=== PATIENT | male | born 1960 | race Caucasian/White ===

== ENCOUNTER 2023-06-25 11:35 | Inpatient (IN) | payer MEDICARE, OTHER ==
[~2023-06-25 11:35] MED LIST: Iopamidol-370 76% 500 ML MDV (1 ML CHARGE) ONE
[2023-06-25] MEDS ORDERED: Ketorolac Tromethamine 30 MG (1 mL) VIAL ONE (12:46)
[2023-06-25] MEDS ORDERED: Ondansetron PF 4 MG/2 ML Vial ONE (12:46)
[2023-06-25 12:55] LABS: #Basophils 0.1 thou/uL (0.0-0.2); #Eosinphils 0.4 thou/uL (0.0-0.7); #Monocytes 0.6 thou/uL (0.11-0.59); #Neutrophils 5.5 thou/uL (1.40-6.50); %Basophils 0.7 % (0.0-1.0); %Eosinophils 4.6 % (0.0-10.0); %Lymphocytes 22.4 % (21.0-51.0); %Monocytes 6.5 % (0.0-10.0); %Neutrophils 65.2 % (42.0-75.0); Hematocrit 39.6 % (42.0-52.0); Hemoglobin 13.1 g/dL (14.0-18.0); Mean Corpuscular HGB CONC 33.1 g/dL (32.0-36.0); Mean Corpuscular Hemoglobin 30.9 pg (27.0-31.0); Mean Corpuscular Volume 93.4 fl (78.0-98.0); Platelet Count 224 10x3/uL (130-400); RBC Distribution Width 18.5 % (11.5-14.5); Red Blood Cell (RBC) Count 4.24 mill/uL (4.70-6.10); White Blood Cell (WBC) Count 8.5 10x3/uL (4.8-10.8)
[2023-06-25 13:16] LABS: Troponin I Less than 0.010 ng/mL (< 0.028)
[2023-06-25 13:19] LABS: ALT (SGPT) 330 U/L (8-55); AST (SGOT) 247 U/L (5-34); Albumin 3.9 g/dL (3.4-4.8); Alkaline Phosphatase 982 U/L (40-110); Anion Gap 12 mmol/L (10-20); BUN (Urea Nitrogen) 15 mg/dL (8.4-25.7); Bilirubin, Total 8.2 mg/dL (0.2-1.2); Calc. Creatinine Clearance 0 mL/min (70-130); Calcium 9.4 mg/dL (7.8-10.44); Carbon Dioxide 22 mmol/L (23-31); Chloride 105 mmol/L (98-107); Estimated GFR 58; Globulin 3.8 g/dL (2.4-3.5); Glucose 86 mg/dL (80-115); Lipase 43 U/L (8-78); Magnesium 2.2 mg/dL (1.6-2.6); Potassium 3.7 mmol/L (3.5-5.1); Protein, Total 7.7 g/dL (5.8-8.1); Sodium 135 mmol/L (136-145)
[2023-06-25 15:41] LABS: Amphetamine Not Detected (NotDetected); Barbiturates Screen Not Detected (NotDetected); Benzodiazepine Screen Not Detected (NotDetected); Cocaine Metabolite Screen Not Detected (NotDetected); Methadone Not Detected (NotDetected); Methamphetamine Not Detected (NotDetected); Opiate Screen Not Detected (NotDetected); Oxycodone Screen Not Detected (NotDetected); Phencyclidine (PCP) Not Detected (NotDetected); THC/Cannabinoid Screen Not Detected (NotDetected); Tricyclic Screen Not Detected (NotDetected)
[2023-06-25 15:42] LABS: Bacteria/HPF None Seen HPF (None Seen); Bilirubin 2+ (Negative); Blood, Urine Negative (Negative); CAUTI Indications for Culture Pelvic or flank pain; Clarity Clear (Clear); Glucose, Urine (Dipstick) Normal (Negative); Ketone, Urine Negative (Negative); Leukocyte Negative Leu/uL (Negative); Nitrite Negative (Negative); Protein, Urine (Dipstick) 30 mg/dL (Neg-Trace); Squamous Epithelial 0-3 HPF (0-3); Urobilinogen Greater than 12 mg/dL (Less than 2); WBC/HPF 0-3 HPF (0-3); pH, Urine 6.5 (5.0-9.0)
[2023-06-25 15:48] LABS: Specific Gravity, Urine Greater than 1.060 (1.002-1.036); Sperm/HPF 4+ HPF (None Seen)
[2023-06-25] MEDS ORDERED: Acetaminophen 325 MG TAB PO PRN (15:48)
[2023-06-25] MEDS ORDERED: Ondansetron PF 4 MG/2 ML Vial IVP PRN (15:48)
[2023-06-25] MEDS ORDERED: Lactulose 20 GM (30 mL) UDCUP PO PRN (15:48)
[2023-06-25 15:49] LABS: Urine Culture Reflex No No
[2023-06-25] MEDS ORDERED: Morphine 4 MG/ML VIAL SLOW IVP PRN (15:50)
[2023-06-25] MEDS ORDERED: Polyethylene Glycol 3350 17 GM Packet PO SCH (16:00)
[2023-06-25] MEDS ORDERED: Levothyroxine Sodium 75 MCG TAB PO SCH (16:00)
[2023-06-25] MEDS: HYDROcodone/Acetaminophen 5/325 mg Tablet PO PRN (17:31)
[2023-06-25] MEDS: Nicotine 21 MG PATCH TD SCH (17:32)
[2023-06-25 17:57] VITALS: BMI 33.2
[2023-06-25] MEDS: Morphine 2 MG/ML VIAL SLOW IVP PRN (20:01)
[2023-06-25] MEDS: Senokot S 8.6-50 MG TAB PO SCH (20:02)
[2023-06-26] MEDS: Morphine 2 MG/ML VIAL SLOW IVP PRN ×3 (05:28→20:07)
[2023-06-26] MEDS: Levothyroxine Sodium 75 MCG TAB PO SCH (05:28)
[2023-06-26 05:57] LABS: ALT (SGPT) 291 U/L (8-55); AST (SGOT) 220 U/L (5-34); Albumin 3.5 g/dL (3.4-4.8); Alkaline Phosphatase 889 U/L (40-110); Anion Gap 12 mmol/L (10-20); BUN (Urea Nitrogen) 17 mg/dL (8.4-25.7); Calc. Creatinine Clearance 70 mL/min (70-130); Calcium 8.8 mg/dL (7.8-10.44); Carbon Dioxide 21 mmol/L (23-31); Chloride 105 mmol/L (98-107); Estimated GFR 50; Globulin 3.3 g/dL (2.4-3.5); Glucose 86 mg/dL (80-115); Potassium 4.1 mmol/L (3.5-5.1); Protein, Total 6.8 g/dL (5.8-8.1); Sodium 134 mmol/L (136-145)
[2023-06-26 06:36] LABS: Thyroid Stimulating Hormone 49.1942 uIU/mL (0.35-4.94)
[2023-06-26 07:08] LABS: Free T4 (Free Thyroxine) Less than 0.40 ng/dL (0.70-1.48)
[2023-06-26] MEDS: Senokot S 8.6-50 MG TAB PO SCH ×2 (08:46→20:07)
[2023-06-26] MEDS: Polyethylene Glycol 3350 17 GM Packet PO SCH (08:46)
[2023-06-26] MEDS: HYDROcodone/Acetaminophen 5/325 mg Tablet PO PRN (08:46)
[2023-06-26] MEDS ORDERED: traMADol HCl 50 MG TAB PO PRN (14:53)
[2023-06-26] MEDS ORDERED: Acetaminophen 325 MG TAB PO PRN (14:57)
[2023-06-26] MEDS: Lactated Ringer's 1,000 ML IV SCH (16:57)
[2023-06-26] MEDS: Nicotine 21 MG PATCH TD SCH (16:58)
[2023-06-26] MEDS: Sertraline 25 MG TAB PO SCH (20:07)
[2023-06-27] MEDS: Morphine 2 MG/ML VIAL SLOW IVP PRN ×3 (01:20→13:09)
[2023-06-27] MEDS: Lactated Ringer's 1,000 ML IV SCH (04:36)
[2023-06-27] MEDS: Levothyroxine Sodium 75 MCG TAB PO SCH ×2 (04:44→08:26)
[2023-06-27 05:14] LABS: #Eosinphils 0.3 thou/uL (0.0-0.7); #Monocytes 0.5 thou/uL (0.11-0.59); #Neutrophils 4.1 thou/uL (1.40-6.50); %Basophils 0.6 % (0.0-1.0); %Eosinophils 4.8 % (0.0-10.0); %Lymphocytes 25.3 % (21.0-51.0); %Monocytes 6.8 % (0.0-10.0); %Neutrophils 61.9 % (42.0-75.0); Hematocrit 32.8 % (42.0-52.0); Hemoglobin 10.9 g/dL (14.0-18.0); Mean Corpuscular HGB CONC 33.2 g/dL (32.0-36.0); Mean Corpuscular Hemoglobin 31.4 pg (27.0-31.0); Mean Corpuscular Volume 94.5 fl (78.0-98.0); Mean Platelet Volume 10.2 fL (7.4-10.4); Platelet Count 184 10x3/uL (130-400); RBC Distribution Width 18.9 % (11.5-14.5); Red Blood Cell (RBC) Count 3.47 mill/uL (4.70-6.10); White Blood Cell (WBC) Count 6.6 10x3/uL (4.8-10.8)
[2023-06-27 05:24] LABS: INR-International Normal Ratio 0.9; Prothrombin Time 12.5 sec (12.0-14.7)
[2023-06-27 05:42] LABS: ALT (SGPT) 250 U/L (8-55); AST (SGOT) 165 U/L (5-34); Albumin 3.3 g/dL (3.4-4.8); Alkaline Phosphatase 791 U/L (40-110); Anion Gap 13 mmol/L (10-20); BUN (Urea Nitrogen) 16 mg/dL (8.4-25.7); Bilirubin, Total 5.4 mg/dL (0.2-1.2); Calc. Creatinine Clearance 98 mL/min (70-130); Calcium 8.8 mg/dL (7.8-10.44); Carbon Dioxide 22 mmol/L (23-31); Chloride 103 mmol/L (98-107); Estimated GFR 75; Globulin 3.1 g/dL (2.4-3.5); Glucose 90 mg/dL (80-115); Protein, Total 6.4 g/dL (5.8-8.1); Sodium 134 mmol/L (136-145)
[2023-06-27 05:59] LABS: HBCM Index 0.07 S/CO (0-0.79); HBSAg Index 0.18 S/CO (0-0.99); Hep A IgM AB Non-Reactive S/CO (NonReactive); Hep A IgM S/CO 0.47 S/CO (0-0.79); Hep B Surf Ag Non-Reactive S/CO (NonReactive); Hepatitis B Core IgM Abs Non-Reactive S/CO (NonReactive)
[2023-06-27 06:03] LABS: Hep C IgG Ab Reflex HepC Qnt S/CO (NonReactive)
[2023-06-27] MEDS: Senokot S 8.6-50 MG TAB PO SCH ×2 (13:19→20:28)
[2023-06-27] MEDS: Polyethylene Glycol 3350 17 GM Packet PO SCH (13:19)
[2023-06-27] MEDS ORDERED: Morphine IR 10 MG/5 ML UDCUP PO PRN (17:32)
[2023-06-27] MEDS ORDERED: Simethicone Chewable 80 MG TAB PO PRN (17:35)
[2023-06-27] MEDS ORDERED: Lactulose 20 GM (30 mL) UDCUP PO SCH ×2 (17:45→21:00)
[2023-06-27] MEDS ORDERED: Fleet Saline Enema 133 ML BOT PR SCH (17:45)
[2023-06-27] MEDS: Nicotine 21 MG PATCH TD SCH (18:19)
[2023-06-27] MEDS: Ibuprofen 200 MG TAB PO PRN (18:26)
[2023-06-27] MEDS: Acetaminophen 500 MG TAB PO PRN (20:27)
[2023-06-27] MEDS: Sertraline 25 MG TAB PO SCH (20:28)
[2023-06-27] MEDS: Lactulose 20 GM (30 mL) UDCUP PO SCH (21:06)
[2023-06-28] MEDS: Ibuprofen 200 MG TAB PO PRN ×3 (01:00→19:54)
[2023-06-28] MEDS: Acetaminophen 500 MG TAB PO PRN ×2 (05:51→16:00)
[2023-06-28] MEDS: Levothyroxine Sodium 75 MCG TAB PO SCH (05:51)
[2023-06-28 06:43] LABS: #Eosinphils 0.3 thou/uL (0.0-0.7); #Monocytes 0.4 thou/uL (0.11-0.59); %Basophils 0.5 % (0.0-1.0); %Eosinophils 4.6 % (0.0-10.0); %Lymphocytes 24.8 % (21.0-51.0); %Monocytes 6.8 % (0.0-10.0); %Neutrophils 62.7 % (42.0-75.0); Hematocrit 33.3 % (42.0-52.0); Mean Corpuscular Hemoglobin 31.3 pg (27.0-31.0); Mean Corpuscular Volume 94.6 fl (78.0-98.0); Mean Platelet Volume 11.4 fL (7.4-10.4); Platelet Count 198 10x3/uL (130-400); RBC Distribution Width 18.9 % (11.5-14.5); Red Blood Cell (RBC) Count 3.52 mill/uL (4.70-6.10); White Blood Cell (WBC) Count 6.3 10x3/uL (4.8-10.8)
[2023-06-28 07:10] LABS: ALT (SGPT) 237 U/L (8-55); AST (SGOT) 172 U/L (5-34); Albumin 3.5 g/dL (3.4-4.8); Alkaline Phosphatase 856 U/L (40-110); Anion Gap 13 mmol/L (10-20); BUN (Urea Nitrogen) 13 mg/dL (8.4-25.7); Bilirubin, Total 5.6 mg/dL (0.2-1.2); Calc. Creatinine Clearance 93 mL/min (70-130); Calcium 9.1 mg/dL (7.8-10.44); Carbon Dioxide 22 mmol/L (23-31); Chloride 101 mmol/L (98-107); Estimated GFR 70; Globulin 3.3 g/dL (2.4-3.5); Glucose 86 mg/dL (80-115); Potassium 4.3 mmol/L (3.5-5.1); Protein, Total 6.8 g/dL (5.8-8.1); Sodium 132 mmol/L (136-145)
[2023-06-28 07:42] LABS: INR-International Normal Ratio 0.9; PTT 29.9 sec (22.9-36.1); Prothrombin Time 12.1 sec (12.0-14.7)
[2023-06-28] MEDS: Senokot S 8.6-50 MG TAB PO SCH ×2 (08:51→19:55)
[2023-06-28] MEDS: Aspirin 81 mg Enteric Coated Tablet PO SCH (08:51)
[2023-06-28] MEDS: Polyethylene Glycol 3350 17 GM Packet PO SCH (08:51)
[2023-06-28] MEDS: Lactulose 20 GM (30 mL) UDCUP PO SCH ×3 (08:51→19:54)
[2023-06-28] MEDS: Nicotine 21 MG PATCH TD SCH (15:53)
[2023-06-28] MEDS: Sertraline 25 MG TAB PO SCH (19:55)
[2023-06-29] MEDS: Levothyroxine Sodium 75 MCG TAB PO SCH (05:19)
[2023-06-29] MEDS: Acetaminophen 500 MG TAB PO PRN (05:19)
[2023-06-29 06:32] LABS: #Basophils 0.1 thou/uL (0.0-0.2); #Eosinphils 0.3 thou/uL (0.0-0.7); #Monocytes 0.4 thou/uL (0.11-0.59); %Basophils 0.7 % (0.0-1.0); %Eosinophils 4.2 % (0.0-10.0); %Lymphocytes 28.8 % (21.0-51.0); %Monocytes 6.4 % (0.0-10.0); %Neutrophils 59.3 % (42.0-75.0); Hematocrit 32.8 % (42.0-52.0); Mean Corpuscular HGB CONC 33.5 g/dL (32.0-36.0); Mean Corpuscular Hemoglobin 31.9 pg (27.0-31.0); Mean Corpuscular Volume 95.1 fl (78.0-98.0); Mean Platelet Volume 11.1 fL (7.4-10.4); Platelet Count 207 10x3/uL (130-400); Red Blood Cell (RBC) Count 3.45 mill/uL (4.70-6.10); White Blood Cell (WBC) Count 6.7 10x3/uL (4.8-10.8)
[2023-06-29 06:43] LABS: INR-International Normal Ratio 0.9; PTT 29.6 sec (22.9-36.1); Prothrombin Time 12.1 sec (12.0-14.7)
[2023-06-29 06:59] LABS: ALT (SGPT) 214 U/L (8-55); AST (SGOT) 139 U/L (5-34); Albumin 3.6 g/dL (3.4-4.8); Alkaline Phosphatase 900 U/L (40-110); Anion Gap 14 mmol/L (10-20); BUN (Urea Nitrogen) 16 mg/dL (8.4-25.7); Bilirubin, Total 4.3 mg/dL (0.2-1.2); Calc. Creatinine Clearance 76 mL/min (70-130); Calcium 9.3 mg/dL (7.8-10.44); Carbon Dioxide 22 mmol/L (23-31); Chloride 101 mmol/L (98-107); Estimated GFR 55; Globulin 3.5 g/dL (2.4-3.5); Glucose 89 mg/dL (80-115); Potassium 4.1 mmol/L (3.5-5.1); Protein, Total 7.1 g/dL (5.8-8.1); Sodium 133 mmol/L (136-145)
[2023-06-29] MEDS ORDERED: Levothyroxine Sodium 75 MCG TAB PO SCH (08:09)
[2023-06-29] MEDS ORDERED: Levothyroxine Sodium 100 MCG TAB PO SCH (08:15)
[2023-06-29] MEDS: Lactulose 20 GM (30 mL) UDCUP PO SCH ×2 (08:20→20:55)
[2023-06-29] MEDS: Aspirin 81 mg Enteric Coated Tablet PO SCH (08:20)
[2023-06-29] MEDS: Polyethylene Glycol 3350 17 GM Packet PO SCH (08:21)
[2023-06-29] MEDS: Senokot S 8.6-50 MG TAB PO SCH ×2 (08:21→20:56)
[2023-06-29] MEDS ORDERED: Levothyroxine Sodium 50 MCG TAB PO SCH (08:30)
[2023-06-29] MEDS: traMADol HCl 50 MG TAB PO PRN (08:30)
[2023-06-29] MEDS: Sodium Chloride 0.9% 1,000 ML IV SCH ×2 (08:31→20:56)
[2023-06-29] MEDS: HYDROcodone/Acetaminophen 5/325 mg Tablet PO PRN ×3 (13:04→21:57)
[2023-06-29] MEDS: Nicotine 21 MG PATCH TD SCH (17:06)
[2023-06-29 19:12] LABS: Hep C PCR-Quant HCV Not Detected IU/mL (.)
[2023-06-29] MEDS: Sertraline 25 MG TAB PO SCH (20:55)
[2023-06-30] MEDS: HYDROcodone/Acetaminophen 5/325 mg Tablet PO PRN ×5 (02:47→20:06)
[2023-06-30] MEDS ORDERED: Levothyroxine Sodium 125 MCG TAB PO SCH ×2 (06:00→08:24)
[2023-06-30 06:26] LABS: #Basophils 0.1 thou/uL (0.0-0.2); #Eosinphils 0.4 thou/uL (0.0-0.7); #Monocytes 0.5 thou/uL (0.11-0.59); #Neutrophils 4.5 thou/uL (1.40-6.50); %Basophils 0.9 % (0.0-1.0); %Eosinophils 5.1 % (0.0-10.0); %Lymphocytes 21.7 % (21.0-51.0); %Monocytes 7.3 % (0.0-10.0); %Neutrophils 64.4 % (42.0-75.0); Hematocrit 33.6 % (42.0-52.0); Mean Corpuscular HGB CONC 32.7 g/dL (32.0-36.0); Mean Corpuscular Hemoglobin 31.2 pg (27.0-31.0); Mean Corpuscular Volume 95.2 fl (78.0-98.0); Platelet Count 207 10x3/uL (130-400); RBC Distribution Width 18.9 % (11.5-14.5); Red Blood Cell (RBC) Count 3.53 mill/uL (4.70-6.10)
[2023-06-30 06:38] LABS: INR-International Normal Ratio 0.9; PTT 28.8 sec (22.9-36.1); Prothrombin Time 12.2 sec (12.0-14.7)
[2023-06-30 07:00] LABS: ALT (SGPT) 228 U/L (8-55); AST (SGOT) 199 U/L (5-34); Albumin 3.6 g/dL (3.4-4.8); Alkaline Phosphatase 903 U/L (40-110); Anion Gap 13 mmol/L (10-20); BUN (Urea Nitrogen) 14 mg/dL (8.4-25.7); Bilirubin, Total 4.3 mg/dL (0.2-1.2); Calc. Creatinine Clearance 91 mL/min (70-130); Carbon Dioxide 22 mmol/L (23-31); Chloride 102 mmol/L (98-107); Estimated GFR 69; Globulin 3.3 g/dL (2.4-3.5); Glucose 110 mg/dL (80-115); Potassium 4.1 mmol/L (3.5-5.1); Protein, Total 6.9 g/dL (5.8-8.1); Sodium 133 mmol/L (136-145)
[2023-06-30] MEDS ORDERED: Levothyroxine Sodium 25 MCG TAB PO SCH (08:30)
[2023-06-30] MEDS: Lactulose 20 GM (30 mL) UDCUP PO SCH ×2 (09:28→20:01)
[2023-06-30] MEDS: Senokot S 8.6-50 MG TAB PO SCH ×2 (09:28→20:01)
[2023-06-30] MEDS: Aspirin 81 mg Enteric Coated Tablet PO SCH (09:28)
[2023-06-30] MEDS: Polyethylene Glycol 3350 17 GM Packet PO SCH (09:30)
[2023-06-30] MEDS: Sodium Chloride 0.9% 1,000 ML IV SCH ×2 (14:01→23:32)
[2023-06-30] MEDS: Nicotine 21 MG PATCH TD SCH (16:26)
[2023-06-30] MEDS: traMADol HCl 50 MG TAB PO PRN (18:31)
[2023-06-30] MEDS: Acetaminophen 500 MG TAB PO PRN (18:31)
[2023-06-30] MEDS: Sertraline 25 MG TAB PO SCH (20:00)
[2023-07-01] MEDS: HYDROcodone/Acetaminophen 5/325 mg Tablet PO PRN ×3 (01:30→11:22)
[2023-07-01] MEDS: Acetaminophen 500 MG TAB PO PRN ×2 (01:31→17:51)
[2023-07-01] MEDS: traMADol HCl 50 MG TAB PO PRN ×2 (05:37→17:52)
[2023-07-01] MEDS: Levothyroxine 150 MCG TAB PO SCH (05:38)
[2023-07-01 05:53] LABS: #Basophils 0.1 thou/uL (0.0-0.2); #Eosinphils 0.4 thou/uL (0.0-0.7); #Monocytes 0.6 thou/uL (0.11-0.59); #Neutrophils 4.6 thou/uL (1.40-6.50); %Basophils 0.9 % (0.0-1.0); %Eosinophils 5.2 % (0.0-10.0); %Lymphocytes 29.4 % (21.0-51.0); %Monocytes 7.5 % (0.0-10.0); %Neutrophils 55.9 % (42.0-75.0); Hematocrit 37.1 % (42.0-52.0); Hemoglobin 11.7 g/dL (14.0-18.0); Mean Corpuscular HGB CONC 31.5 g/dL (32.0-36.0); Mean Corpuscular Hemoglobin 31.2 pg (27.0-31.0); Mean Platelet Volume 10.7 fL (7.4-10.4); Platelet Count 222 10x3/uL (130-400); RBC Distribution Width 19.2 % (11.5-14.5); Red Blood Cell (RBC) Count 3.75 mill/uL (4.70-6.10); White Blood Cell (WBC) Count 8.2 10x3/uL (4.8-10.8)
[2023-07-01 06:04] LABS: Mean Corpuscular Volume 98.9 fl (78.0-98.0)
[2023-07-01 06:21] LABS: ALT (SGPT) 247 U/L (8-55); AST (SGOT) 189 U/L (5-34); Albumin 3.9 g/dL (3.4-4.8); Alkaline Phosphatase 1013 U/L (40-110); Anion Gap 13 mmol/L (10-20); BUN (Urea Nitrogen) 13 mg/dL (8.4-25.7); Bilirubin, Total 4.8 mg/dL (0.2-1.2); Calc. Creatinine Clearance 79 mL/min (70-130); Calcium 9.4 mg/dL (7.8-10.44); Carbon Dioxide 25 mmol/L (23-31); Chloride 100 mmol/L (98-107); Estimated GFR 58; Globulin 3.8 g/dL (2.4-3.5); Glucose 73 mg/dL (80-115); Potassium 4.1 mmol/L (3.5-5.1); Protein, Total 7.7 g/dL (5.8-8.1); Sodium 134 mmol/L (136-145)
[2023-07-01] MEDS: Polyethylene Glycol 3350 17 GM Packet PO SCH (08:55)
[2023-07-01] MEDS: Aspirin 81 mg Enteric Coated Tablet PO SCH (08:55)
[2023-07-01] MEDS: Senokot S 8.6-50 MG TAB PO SCH ×2 (08:55→19:50)
[2023-07-01] MEDS: Lactulose 20 GM (30 mL) UDCUP PO SCH ×2 (08:55→19:50)
[2023-07-01] MEDS: HYDROcodone/Acetaminophen 7.5/325 mg Tablet PO PRN ×2 (15:00→19:50)
[2023-07-01] MEDS: Nicotine 21 MG PATCH TD SCH (15:06)
[2023-07-01] MEDS: Sodium Chloride 0.9% 1,000 ML IV SCH (15:06)
[2023-07-01] MEDS: Sertraline 25 MG TAB PO SCH (19:50)
[2023-07-02] MEDS: Sodium Chloride 0.9% 1,000 ML IV SCH (00:58)
[2023-07-02] MEDS: HYDROcodone/Acetaminophen 7.5/325 mg Tablet PO PRN ×2 (01:38→05:28)
[2023-07-02] MEDS: Acetaminophen 500 MG TAB PO PRN (01:39)
[2023-07-02] MEDS: Levothyroxine 150 MCG TAB PO SCH (05:28)
[2023-07-02] MEDS: traMADol HCl 50 MG TAB PO PRN (05:29)
[2023-07-02 06:21] LABS: #Basophils 0.1 thou/uL (0.0-0.2); #Eosinphils 0.3 thou/uL (0.0-0.7); #Monocytes 0.5 thou/uL (0.11-0.59); #Neutrophils 4.3 thou/uL (1.40-6.50); %Basophils 0.7 % (0.0-1.0); %Eosinophils 4.3 % (0.0-10.0); %Lymphocytes 23.6 % (21.0-51.0); %Monocytes 7.2 % (0.0-10.0); %Neutrophils 63.6 % (42.0-75.0); Hematocrit 32.7 % (42.0-52.0); Hemoglobin 10.7 g/dL (14.0-18.0); Mean Corpuscular HGB CONC 32.7 g/dL (32.0-36.0); Mean Corpuscular Hemoglobin 32.2 pg (27.0-31.0); Mean Corpuscular Volume 98.5 fl (78.0-98.0); Mean Platelet Volume 10.8 fL (7.4-10.4); Platelet Count 205 10x3/uL (130-400); Red Blood Cell (RBC) Count 3.32 mill/uL (4.70-6.10); White Blood Cell (WBC) Count 6.8 10x3/uL (4.8-10.8)
[2023-07-02 06:45] LABS: ALT (SGPT) 212 U/L (8-55); AST (SGOT) 167 U/L (5-34); Albumin 3.6 g/dL (3.4-4.8); Alkaline Phosphatase 890 U/L (40-110); Anion Gap 14 mmol/L (10-20); BUN (Urea Nitrogen) 16 mg/dL (8.4-25.7); Bilirubin, Total 5.3 mg/dL (0.2-1.2); Calc. Creatinine Clearance 83 mL/min (70-130); Carbon Dioxide 23 mmol/L (23-31); Chloride 100 mmol/L (98-107); Estimated GFR 61; Globulin 3.3 g/dL (2.4-3.5); Glucose 91 mg/dL (80-115); Potassium 4.2 mmol/L (3.5-5.1); Protein, Total 6.9 g/dL (5.8-8.1); Sodium 133 mmol/L (136-145)
[2023-07-02 07:24] VITALS: BP 120/76; TEMP 98.5
[2023-07-02] MEDS: Senokot S 8.6-50 MG TAB PO SCH (07:40)
[2023-07-02] MEDS: Lactulose 20 GM (30 mL) UDCUP PO SCH (07:40)
[2023-07-02] MEDS: Aspirin 81 mg Enteric Coated Tablet PO SCH (07:40)
[2023-07-02] MEDS: Polyethylene Glycol 3350 17 GM Packet PO SCH (07:41)
== END 2023-07-02 10:49 | disposition home or self-care (01) | DRG 442 ==
LOC: ERS 11:35 → T4-B 15:10
PROVIDERS: ADMIT Family Medicine; ATTEND Internal Medicine
DX: K76.89 Other specified diseases of liver (principal); I74.5 Embolism and thrombosis of iliac artery; N17.9 Acute kidney failure, unspecified; B19.20 Unspecified viral hepatitis C without hepatic coma; E03.9 Hypothyroidism, unspecified; K74.60 Unspecified cirrhosis of liver; F17.210 Nicotine dependence, cigarettes, uncomplicated; K59.00 Constipation, unspecified; R91.1 Solitary pulmonary nodule; D64.9 Anemia, unspecified; H40.9 Unspecified glaucoma; Z79.899 Other long term (current) drug therapy; Z79.890 Hormone replacement therapy; Z98.890 Other specified postprocedural states; Z98.49 Cataract extraction status, unspecified eye
CPT/HCPCS: 36415; 71045; 74177; 80053; 80074; 80306; 81001; 82105; 82140; 82378; 83690; 83735; 84439; 84443; 84481; 84484; 85025; 85610; 85730; 86301; 87522; 93005; 96374; 96375; J1885; J2272; J2405; J7050; J7120; Q9967

== ENCOUNTER → 2023-08-22 | Outpatient (CLI) | payer MEDICARE | LOC: PET 10:15 | PROVIDERS: ATTEND Internal Medicine Hematology & Oncology | DX: C83.39 Diffuse large B-cell lymphoma, extranodal and solid organ sites (principal); R59.0 Localized enlarged lymph nodes; R91.8 Other nonspecific abnormal finding of lung field; K68.9 Other disorders of retroperitoneum | CPT/HCPCS: 78816; A9552 ==